=== PATIENT | female | born 1995 | race Caucasian/White ===

== ENCOUNTER 2017-11-20 12:13 | Outpatient (CLI) | payer OTHER | END 2017-11-20 12:14 | disposition critical access hospital (66) | LOC: EMS 12:13 | PROVIDERS: ATTEND Surgery | DX: O99.89 Other specified diseases and conditions complicating pregnancy, childbirth and the puerperium (principal); M54.5 Low back pain; V49.40XA Driver injured in collision with unspecified motor vehicles in traffic accident, initial encounter; Y92.413 State road as the place of occurrence of the external cause | CPT/HCPCS: A0425; A0429 ==

== ENCOUNTER 2017-11-20 12:33 | Emergency (ER) | payer OTHER ==
[2017-11-20] MEDS ORDERED: ACETAMINOPHEN 325 MG TABLET PO STA (12:44)
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
--- NOTE | 2017-11-20 13:21 | XRAY Preliminary Report ---
Exam: XR THORACIC SPINE 2 VIEW IMPRESSION: 1. Old minimal wedging mid third mildly kyphotic thoracic spine. 2. No acute bony abnormality. [facility] SITE ID: [id number]
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
[2017-11-20 13:43] VITALS: BP 108/67
== END 2017-11-20 13:42 | disposition home or self-care (01) ==
LOC: ED 12:33
DX: O26.892 Other specified pregnancy related conditions, second trimester (principal); S39.92XA Unspecified injury of lower back, initial encounter; V49.40XA Driver injured in collision with unspecified motor vehicles in traffic accident, initial encounter; Z3A.17 17 weeks gestation of pregnancy
CPT/HCPCS: 72070; 99283; A9270

== ENCOUNTER 2017-11-21 13:02 | Emergency (ER) | payer OTHER ==
[2017-11-21 13:12] VITALS: BP 115/63
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
== END 2017-11-21 13:45 | disposition home or self-care (01) ==
LOC: ED 13:02
DX: O26.892 Other specified pregnancy related conditions, second trimester (principal); S39.92XA Unspecified injury of lower back, initial encounter; V49.40XA Driver injured in collision with unspecified motor vehicles in traffic accident, initial encounter; Y92.411 Interstate highway as the place of occurrence of the external cause; Z3A.17 17 weeks gestation of pregnancy
CPT/HCPCS: 99283

== ENCOUNTER 2017-12-31 14:21 | Outpatient (CLI) | payer OTHER ==
[2017-12-31 14:43] VITALS: BP 114/52
[2017-12-31 14:55] LABS: BILIRUBIN,URINE NEGATIVE (NEGATIVE); GLUCOSE, URINE (UA) NEGATIVE (NEGATIVE); KETONES,URINE (UA) NEGATIVE (NEGATIVE); LEUKOCYTE ESTERASE, URINE SMALL (NEGATIVE); NITRITE,URINE NEGATIVE (NEGATIVE); OCCULT BLOOD,URINE TRACE-LYSE (NEGATIVE); PROTEIN,URINE NEGATIVE (NEGATIVE); UROBILINOGEN,URINE 0.2 (NORMAL) E.U./dL (NORMAL)
[2017-12-31] MEDS ORDERED: LACTATED RINGERS 1,000 ML IV ONE ×2 (15:01→15:17)
[2017-12-31] MEDS ORDERED: SODIUM CHLORIDE FLUSH 0.9% 10 ML SYRINGE ONE (15:01)
[2017-12-31 15:06] LABS: CLARITY,URINE CLEAR (CLEAR); RBC,URINE 0-5 /HPF (0-5)
[2017-12-31 15:07] LABS: BACTERIA,URINE Few /HPF (None Seen); SQUAMOUS EPITHELIAL CELL,UR MANY Squamous (<= Few)
--- NOTE | 2017-12-31 15:36 | PROVIDER PROGRESS NOTE ---
Subjective - Prog Note Date Prog Note Date: 12/31/17 Prog Note Time: 14:35 - Subjective Subjective: Mrs. Ninoska Martin is a 22-year-old primigravida who receives [facility] care [facility] and reports spotting with a known placenta previa. The spotting is been self-limited and began approximately 2-1/2 hours ago not associated with contractions. She reports no symptoms associated with preeclampsia. On her records JACK is listed as 06 September 2017. On her 20 week FAS ultrasound placenta previa was discovered. She is maintained pelvic rest and has not had any contractions or abdominal pain. She does not have known coagulopathy or easy bleeding tendency. She is a non-smoker. She reports that the right lower quadrant is sore. She had previously underwent appendectomy. Objective - Vital Signs/Intake & Output Vital Signs: Vital Signs x48h Temp Pulse Resp BP Pulse Ox 12/31/17 15:23 98.4 F 12/31/17 14:36 88 20 114/52 L 98 - Lab Results Fish Bones: 12/31/17 15:38 Other Labs: Lab Results x24hrs 12/31/17 Range/Units 14:35 Urine Color YELLOW Urine Clarity CLEAR (CLEAR) Urine pH 7.0 (5.0-7.5) PH Ur Specific [place] 1.015 (1.002-1.030) Urine Protein NEGATIVE (NEGATIVE) mg/dL Urine Glucose (UA) NEGATIVE (NEGATIVE) mg/dL Urine Ketones NEGATIVE (NEGATIVE) mg/dL Urine Occult Blood TRACE-LYSE (NEGATIVE) Urine Nitrite NEGATIVE (NEGATIVE) Urine Bilirubin NEGATIVE (NEGATIVE) Urine Urobilinogen 0.2 (NORMAL) (NORMAL) E.U./dL Ur Leukocyte Esterase SMALL H (NEGATIVE) Urine RBC 0-5 (0-5) /HPF Urine WBC 6-10 H (0-5) /HPF Ur Squamous Epith Cells MANY Squamous H (<= Few) Urine Bacteria Few (None Seen) /HPF Urine Culture Comments NOT INDICATED Physical Exam - Physical Exam General Appearance: mild distress (Anxious), other (Normal build) Eyes, Ears, Nose, Throat Exam: PERRL/EOMI Neck: O (Supple neck) Cardiovascular/Respiratory: regular rate, rhythm, no M/R/G, normal peripheral pulses Gastrointestinal/Abdominal: Normal bowel sounds, Non tender, No organomegaly Pelvic Exam: blood (Minimal spotting on her underwear reported) Extremity: normal range of motion, no calf tenderness Neurologic: no motor/sensory deficits, oriented x 3 Skin Exam: normal color, warm/dry Comments: Pelvic exam not accomplished due to known previa. Preliminary ultrasound confirms complete previa without evidence of abruption or active bleeding. Cervical length in excess of 4 cm. Assessment/Plan - Assessment/Plan Assessment: Mrs. Isaac is a 22-year-old primigravida at 23 weeks with known placenta previa who reports a brief episode of spotting without continued contractions. Ultrasound does not show any abruption or continued bleeding. growth is normal on ultrasound. Additionally there were no further bleeding episodes during her period of observation. Betamethasone would be too early at 23 weeks since the [place] pods are not developed yet. Maternal Rh type is positive. and therefore RhoGam not required. Pelvic waiting rest and close following are indicated. Plan: Plan * Patient is to re-return home and continue pelvic rest. * She is to avoid rigorous activities such as running or aerobics but should walk daily. * If she has further bleeding episodes she is to report them to her merchandising consultant and report immediately to the nearest obstetrical hospital. * She should call her [facility] provider and make a follow-up appointment this week.
[2017-12-31] MEDS ORDERED: fentaNYL 100 MCG/2 ML VIAL ONE (15:56)
[2017-12-31 15:59] LABS: BASOPHILS % (AUTO) 0.3 %; EOSINOPHILS # (AUTO) 0.1 10^3/uL (0.0-0.7); EOSINOPHILS % (AUTO) 0.4 %; HGB - HEMOGLOBIN 11.8 g/dL (12.0-16.0); LYMPHOCYTES # (AUTO) 1.5 10^3/uL (1.5-3.5); LYMPHOCYTES % (AUTO) 9.3 %; MEAN CORPUSCULAR HEMOGLOBIN 29.8 pg (27.0-31.0); MEAN CORPUSCULAR HGB CONC 33.8 g/dL (32.0-36.0); MEAN CORPUSCULAR VOLUME 88.3 fL (81.0-99.0); MEAN PLATELET VOLUME 8.2 fL (7.9-10.8); MONOCYTES # (AUTO) 0.8 10^3/uL (0.0-1.0); MONOCYTES % (AUTO) 4.8 %; NEUTROPHILS % (AUTO) 85.2 %; PLT - PLATELET COUNT 250 10^3/uL (130-450); RED BLOOD COUNT 3.95 10^6/uL (4.20-5.40); RED CELL DISTRIBUTION WIDTH 12.9 % (12.0-15.0); WHITE BLOOD COUNT 16.4 x10^3/uL (4.8-10.8)
[2017-12-31] MEDS ORDERED: fentaNYL 100 MCG/2 ML VIAL IVP SCH (16:00)
--- NOTE | 2017-12-31 16:51 | Ultrasound Report ---
EXAM: FOLLOW-UP OBSTETRICAL ULTRASOUND EXAM DATE: 12/31/2017 02:56 PM. CLINICAL HISTORY: Placenta previa, bleeding, abdominal pain, growth. COMPARISON: None. TECHNIQUE: Real-time sonographic evaluation of the fetus performed by the expressive therapist. Additional tra nsvaginal imaging to more accurately evaluate cervical length/placental position/etc. Multiple repres entative static images were saved for review. DATING: Established EGA 23 weeks 1 day with JACK 04/28/2018 based on source of assigned dating. EGA 23 weeks 0 days with JACK 04/29/2018 based on the current ultrasound. GENERAL EVALUATION Foster . Cardiac activity: 154 bpm. movement: Visualized. Presentation: Transverse Placenta: Posterior position. There is placenta previa with complete coverage of the internal cervica l os by the placenta. No evidence of placental abruption. Amniotic fluid: Normal. REGINA 14.6 cm. MVP 4.5 cm. BIOMETRY Bi-Parietal Diameter (BPD): 5.4 cm, 22 weeks 3 days Head Circumference (HC): 20.6 cm, 22 weeks 5 days Abdominal Circumference (AC): 18.8 cm, 23 weeks 4 days Femur Length (FL): 4.1 cm, 23 weeks 1 day Estimated Weight: 577 gm, 48 percentile for 23 weeks 1 day. MATERNAL STRUCTURES The cervix appears closed and measures 3.6 cm in length. IMPRESSION: 1. Foster live intrauterine with gestational age 23 weeks 1 day based on source of assig surjit dating. 2. Estimated weight is within expected limits for assigned dating. 3. Placenta previa. The cervix appears closed and measures 3.6 cm in length. 4. Normal amniotic fluid index. [facility] Referring Provider Line: [phone] SITE ID: [id number]
== END 2017-12-31 17:00 | disposition home or self-care (01) ==
LOC: WFO 14:21 → FBP 14:23 → WFO 17:00
PROVIDERS: ATTEND Obstetrics & Gynecology
DX: O44.02 Complete placenta previa NOS or without hemorrhage, second trimester (principal); Z3A.23 23 weeks gestation of pregnancy
CPT/HCPCS: 76816; 81001; 85025; 96361; 96374; 99213; J7120; 87086